=== PATIENT | male | born 1980 | race Caucasian/White ===

== ENCOUNTER 2019-07-28 10:54 | Emergency (ER) | payer MEDICAID ==
[~2019-07-28] VITALS: Ht 170.2 cm; Wt 63.5 kg
--- NOTE | 2019-07-28 12:20 | NUR ---
WALKER GIVEN TO THE PATIENT.
--- NOTE | 2019-07-28 12:28 | NUR ---
PATIENT LEFT WITHOUT SIGNING DISCHARGE PAPERWORKS.
[2019-07-28 12:30] VITALS: BP 128/87
== END 2019-07-28 12:31 | disposition home or self-care (01) ==
LOC: ER 10:56
DX: S92.351A Displaced fracture of fifth metatarsal bone, right foot, initial encounter for closed fracture (principal); Z98.890 Other specified postprocedural states; W01.0XXA Fall on same level from slipping, tripping and stumbling without subsequent striking against object, initial encounter; Y93.89 Activity, other specified; Y92.89 Other specified places as the place of occurrence of the external cause; Y99.8 Other external cause status
CPT/HCPCS: 73630-TC